=== PATIENT | male | born 1990 | race Caucasian/White ===

== ENCOUNTER → 2019-04-05 10:08 | Outpatient (CLI) | payer OTHER, SELFPAY ==
[2019-04-05 12:38] LABS: Creatinine, Urine (random) < 13.00 mg/dL (NO RANGE EST.); Microalbumin,Random Urine < 5.0 mg/L (NO RANGE EST.)
[2019-04-05 12:43] LABS: Anion Gap 4 (5-15); BUN 11 mg/dL (7-18); BUN/Creat Ratio 10.8 RATIO (10-20); Calcium,Total 9.5 mg/dL (8.5-10.1); Chloride 106 mmol/L (98-107); Creatinine, Serum 1.02 mg/dL (0.70-1.30); EST Glomerular Filtration Rate 92 mL/min (>60); Est Glom Filt Rate - Afr Amer 112 mL/min (>60); Glucose 84 mg/dL (74-106); Potassium 4.3 mmol/L (3.5-5.1); Sodium Level 139 mmol/L (136-145)
== END ==
LOC: MTLAB 10:15
PROVIDERS: PCP Family Medicine; Referring Provider Family Medicine; Visit Provider Family Medicine
DX: R03.0 Elevated blood-pressure reading, without diagnosis of hypertension (principal)
CPT/HCPCS: 36415; 80048; 82043; 82570

== ENCOUNTER 2020-10-15 21:38 | Emergency (ER) | payer OTHER, SELFPAY ==
[2020-10-15 21:39] VITALS: BP 163/116; PULSE 80; RESP 16; TEMP 36.6; O2SAT 98; BMI 30.9
--- NOTE | 2020-10-15 21:44 | EKG12_ITS ---
Test Reason : CP Blood Pressure : / mmHG Vent. Rate : 069 BPM Atrial Rate : 069 BPM P-R Int : 142 ms QRS Dur : 088 ms QT Int : 374 ms P-R-T Axes : 041 037 032 degrees QTc Int : 400 ms Normal sinus rhythm Normal ECG Confirmed by SARAH VICENTE, UYEN ([id number]), city editor SEVERINO ROBERTS ([id number]) on 10/18/2020 12:56:23 PM Referred By: PL/PC Confirmed By:UYEN SMITH MD
--- NOTE | 2020-10-15 21:55 | ED.RN ---
NO OLD EKGS IN MUSE
[2020-10-15 22:14] VITALS: BP 139/95
[2020-10-15 22:15] LABS: Absolute Lymphocyte Count 3.06 X10^3/uL (0.83-4.51); Absolute Neutrophil Count 2.8 X10^3/uL (2.0-7.7); Basophil# 0.07 X10^3/uL; Eosinophil# 0.35 X10^3/uL; Hematocrit 43.4 % (40-54); Hemoglobin 15.2 g/dL (13.0-16.5); Lymphocyte # 3.06 X10^3/ul (0.83-4.51); Lymphocyte % 43.8 % (19-41); Mean Corpuscular Hgb 32.5 pg (27.0-32.0); Mean Corpuscular Volume 92.7 fL (80-94); Mean Platelet Vol. 8.9 fl (6.2-12.0); Monocyte# 0.72 X10^3/uL; Monocyte% 10.3 % (0-10); NRBC Flagged by Analyzer 0 % (0-5); Neutrophil # 2.75 X10^3/uL (2.7-7.7); Neutrophil % 39.3 % (47-70); Platelet Count 287 K/mm3 (150-450); RBC Distribution Width CV 12.1 % (11.6-14.6); RBC Distribution Width SD 40.8 fl (35.1-43.9); Red Blood Count 4.68 M/mm3 (4.6-6.2)
--- NOTE | 2020-10-15 22:20 | RAD_ITS ---
STUDY: X-RAY CHEST REASON FOR EXAM: Male, 29 years old. chest pain TECHNIQUE: Single AP portable view of the chest. COMPARISON: None. FINDINGS: The lungs are clear and expanded. There is no demonstrated pleural abnormality. Normal size heart. Normal mediastinum and tk. Normal visualized pulmonary arteries. Normal visualized aortic arch and descending thoracic aorta. Normal visualized thoracic spine. Normal visualized ribs, clavicles, and shoulders. There is no demonstrated abnormality of the visualized soft tissue structures of the upper abdomen. RAD/Chest 1 View (Portable) IMPRESSION: Normal x-ray examination of the chest. Electronically Signed: El Maria DO at 22:56 EDT Tel , Service support ,
[2020-10-15 22:34] LABS: Anion Gap 5 (5-15); BUN 21 mg/dL (7-18); BUN/Creat Ratio 16.9 RATIO (10-20); Calcium,Total 9.2 mg/dL (8.5-10.1); Chloride 104 mmol/L (98-107); Creatinine, Serum 1.24 mg/dL (0.70-1.30); EST Glomerular Filtration Rate 73 mL/min (>60); Est Glom Filt Rate - Afr Amer 88 mL/min (>60); Estimated Creatinine Clearance 90.76 ml/min; Glucose 93 mg/dL (74-106); Potassium 3.9 mmol/L (3.5-5.1); Sodium Level 135 mmol/L (136-145); Troponin-I HS 3.8 pg/mL (3.0-78.5)
--- NOTE | 2020-10-15 22:34 | EDS_ITS ---
HPI History of Present Illness Chief Complaint: Chest Pain Informant: patient Narrative Narrative: Patient is a 29-year-old previously healthy male who presents to the emergency department for chest pain. It is just left of the sternal border. He states that it started around 2:30 PM. He has had this pain before in the past but it has never lasted this long before. He states that the pain only got up to around a 3 out of 10. He feels like it has subsided at this point. He denies significant shortness of breath associated with this. No leg swelling or calf pain. No family history of cardiac disease at a young age. He is an occasional alcohol user. He denies any recent illness including a cough, cold, congestion. No fevers or chills. No abdominal pain or nausea/vomiting. No back pain. He does not know any aggravating or relieving factors. It does come and go randomly. [facility] Home Medications NK 10/15/20 [History Last Taken Unknown] Allergy/AdvReac Type Severity Reaction Status Date / Time DAIRY Allergy Anaphylaxis Uncoded 10/15/20 21:42 [employer]HW[employer] FISH Allergy Anaphylaxis Uncoded 10/15/20 21:42 Social History Smoking Status: Never smoker ROS ROS ED Constitutional Constitutional ED: Denies chills or fever(s) Eyes Eyes: Denies change in vision ENT ENT ED: Denies epistaxis or rhinorrhea Cardiovascular Cardiovascular: Reports chest pain; Denies palpitations Respiratory/Chest Respiratory/Chest: Denies cough, dyspnea or dyspnea on exertion Gastrointestinal Gastrointestinal: Denies abdominal pain, diarrhea, nausea or vomiting Musculoskeletal Musculoskeletal: Denies back pain or neck pain Integumentary Denies rash Neurologic Neurologic: Denies dizziness, headache(s) or weakness EXAM Physical Exam Const Vital Signs: 10/15/20 21:39 10/15/20 22:12 10/15/20 22:14 Temperature 97.9 F Temperature Source Temporal Pulse Rate 80 Respiratory Rate 16 Blood Pressure 163/116 H 139/95 H Blood Pressure Mean 131 109 Pulse Ox 98 Oxygen Delivery Method Room Air Room Air 10/15/20 23:24 Temperature Temperature Source Pulse Rate 61 Respiratory Rate 16 Blood Pressure 136/68 H Blood Pressure Mean Pulse Ox 97 Oxygen Delivery Method Positive well nourished and well developed General Appearance ED: well developed and NAD HEENT Reports normocephalic, head/scalp atraumatic and moist mucous membranes Eyes PERRL and EOMs intact bilaterally Neck supple Resp normal respiratory effort and clear to auscultation bilaterally Auscultation: Negative for rales, rhonchi or wheezes Cardio regular rate, regular rhythm and no murmurs GI normal to inspection, nondistended, normoactive bowel sounds and non-tender Palpation: soft; Negative for guarding or rebound tenderness present Extremity normal to inspection General Extremety ED: Negative for edema or tenderness General Extremity: Negative for edema Neuro no sensory deficits noted Sensorium / Orientation: alert Motor Exam: strength 5/5 throughout Psych mental status grossly normal Skin no rashes or lesions noted Heart Score History: Slightly/Non-Suspicious ECG: Normal Age: </= 45 years Risk Factors: No Risk Factors Score: 0 MDM MDM MDM Narrative Medical decision making narrative: Patient presents to the emergency department for chest pain. This is not exertional pain. On arrival to the ED is hypertensive but otherwise normal vital signs. His blood pressure has been coming down throughout ED stay. His EKG does not show any signs of acute ischemia or arrhythmia. Heart rate of 69 bpm and normal sinus rhythm. Normal intervals with a normal axis. Basic lab work obtained along with chest x-ray. I did personally reviewed the single view portable x-ray which did not reveal any acute cardiopulmonary abnormality. No pleural effusions. Normal mediastinum. Normal cardiac silhouette. Patient is not anemic. He does not have a high white blood cell count. No significant electrolyte disturbance. Troponin well within normal limits. On repeat examination patient is resting comfortably. His symptoms have improved. At this time I have low concern for thromboembolism, ACS, aortic catastrophe, esophageal rupture. He is stable for discharge. We will have him follow-up with his PCP. Return precautions are reviewed. He understands and is agreeable this plan. All questions are answered. Lab Data Labs: Laboratory Results - last 24 hr 10/15/20 10/15/20 22:05 22:05 WBC 7.0 RBC 4.68 Hgb 15.2 Hct 43.4 MCV 92.7 MCH 32.5 H MCHC 35.0 RDW Std Deviation 40.8 RDW Coeff of Genaro 12.1 Plt Count 287 MPV 8.9 Immature Gran % (Auto) 0.600 Neut % (Auto) 39.3 L Lymph % (Auto) 43.8 H Eddy % (Auto) 10.3 H Eos % (Auto) 5.0 Baso % (Auto) 1.0 Absolute Neuts (auto) 2.8 Absolute Lymphs (auto) 3.06 Nucleated RBC % 0 Sodium 135 L Potassium 3.9 Chloride 104 Carbon Dioxide 26.0 Anion Gap 5 BUN 21 H Creatinine 1.24 Estim Creat Clear Calc 90.76 Est GFR (MDRD) Af Amer 88 Est GFR (MDRD) Non-Af 73 BUN/Creatinine Ratio 16.9 Glucose 93 Calcium 9.2 Troponin I High Sens 3.8 Radiography Diagnostic Testing: Radiology Impression Chest X-Ray 10/15/20 22:20 IMPRESSION: Normal x-ray examination of the chest. Electronically Signed: El Maria DO at 22:56 EDT Tel , Service support , Discharge Plan Triage Chief Complaint: Chest Pain ED Provider: Kannan Blair Dx/Rx/DC Orders Clinical Impression: Chest pain Instructions: ED Chest Pain, Noncardiac Prescriptions: No Action NK RF: 0 Primary Care Provider: Ricki Gonzales Referrals: Ricki Gonzales MD [Primary Care Provider] - 2 Days Disposition Disposition: Home, Self Care Discharge Date/Time: 10/15/20 23:24
[2020-10-15 23:24] VITALS: BP 136/68; PULSE 61; RESP 16; O2SAT 97
== END 2020-10-15 23:24 | disposition home or self-care (01) ==
LOC: ED 23:16
PROVIDERS: Emergency Provider Emergency Medicine; PCP Family Medicine
DX: R07.9 Chest pain, unspecified (principal)
CPT/HCPCS: 71045; 80048; 84484; 85025; 93005; 99283